=== PATIENT | male | born 1940 | race Caucasian/White ===

== ENCOUNTER 2018-04-06 08:30 | Outpatient (RCR) | payer MEDICARE, OTHER, SELFPAY | END 2018-04-06 13:51 | LOC: CAR 08:30 | PROVIDERS: Family Provider Family Medicine; PCP Family Medicine; Visit Provider Internal Medicine Cardiovascular Disease | DX: I20.9 Angina pectoris, unspecified (principal) | CPT/HCPCS: 93798 ==

== ENCOUNTER → 2020-07-04 10:52 | Outpatient (CLI) | payer MEDICARE, OTHER, SELFPAY ==
--- NOTE | 2020-07-04 | DI.RAD.S_ITS ---
PROCEDURE: FL BARIUM SWALLOW INDICATIONS: GERD. COMPARISON: None. FINDINGS: Function: There was a small amount of esophageal tertiary contractions over the course of this study. No elicited gastroesophageal reflux. Morphology: Air-contrast images demonstrate normal mucosal morphology. Single contrast views show no esophageal strictures, extrinsic mass effects, or diverticula. A minimal hiatal hernia was observed, a single episode of slight gastroesophageal reflux also was observed Limited images of the stomach demonstrate normal appearance. IMPRESSION: Mild episodic tertiary contractions within the mid and distal esophagus, very small hiatal hernia with minimal associated gastroesophageal reflux. No evidence of stricture, erosion or mass. Dictated by: Chris Henning M.D. on 07/04/2020 at 14:11 Approved by: Chris Henning M.D. on 07/04/2020 at 14:12
== END ==
PROVIDERS: Family Provider Family Medicine; PCP Family Medicine; Referring Provider Family Medicine; Visit Provider Nurse Practitioner Family
DX: K21.9 Gastro-esophageal reflux disease without esophagitis (principal)
CPT/HCPCS: 74220

== ENCOUNTER 2020-09-03 08:50 | Emergency (ER) | payer MEDICARE, OTHER, SELFPAY ==
--- NOTE | 2020-09-03 08:54 | ED_ITS ---
HPI - Extremity Injury (Upper) General Chief Complaint: Extremity Injury, Upper Stated Complaint: INJURED RIGHT SHOULDER Time Seen by Provider: 09/03/20 08:53 History of Present Illness HPI narrative: 80-year-old gentleman with history of coronary artery disease post four-way CABG on aspirin and carvedilol presents after injuring his right shoulder yesterday. He had been pulling some branches in using approved your felt snap/pop in the right shoulder with immediate pain that is gotten worse over the evening. He is having pain abducting his arm but can extend without difficulty. He notes that he is right-handed in this is going to be significantly limiting for him. He is able to use his hand and wrist without pain. He is able to be fully extend his elbow without pain. He states that he did have a similar injury on the left side and did not have it attended to and has significantly limited range of motion on the left side as a consequence. Related Data Home Medications Medication Instructions Recorded Confirmed carvedilol 12.5 mg tablet 12.5 mg PO BID 07/02/20 07/11/20 Previous Rx's Medication Instructions Recorded aspirin-dipyridamole [Aggrenox] 1 cap PO BID #180 cap 08/21/16 atorvastatin 80 mg PO HS #90 tab 02/17/17 lansoprazole 30 mg PO QDAY #90 cap 02/17/17 losartan 100 mg PO QDAY #90 tab 02/17/17 nitroglycerin [Nitrostat] 0.4 mg SUBLINGUAL SEE INSTRUCTIONS 02/17/17 #25 tab Allergies Allergy/AdvReac Type Severity Reaction Status Date / Time No Known Drug Allergies Allergy Verified 09/03/20 09:06 Review of Systems Review of Systems Narrative: Pertinent positive and negative findings as per HPI Remainder of review of systems is otherwise unremarkable for Constitutional: Fevers, chills, weakness ENT: No sore throat, neck pain, ear pain CV: Chest pain, palpitations, dyspnea on exertion Respiratory: Cough, wheeze, dyspnea GI: Nausea, vomiting, diarrhea, change in bowel habits, black or bloody stools : Dysuria, hematuria, flank pain Patient History Medical History Bladder cancer (Acute) BPH w urinary obs/LUTS (Acute) Coronary heart disease (Acute) GERD (gastroesophageal reflux disease) (Acute) High blood pressure (Acute) History of primary bladder cancer (Acute) Surgical History H/O cystoscopy (Acute) H/O prostate biopsy (Acute) History of coronary artery stent placement (Acute) History of heart bypass surgery (Acute) History of hip replacement (Acute) History of liver biopsy (Acute) Hx of cholecystectomy (Acute) Hx of vasectomy (Acute) Social History Smoking Status: Never smoker Smoking Status: Never smoker Exam Narrative Exam Narrative: General: Alert appropriate in mild distress Respiratory: Able to speak in full sentences, no obvious respiratory distress Skin: No obvious rashes, warm and dry Neurologic: Grossly intact no obvious asymmetries or abnormalities Extremity: Tender over the deltoid area right arm. There is a minor bruise over the distal deltoid insertion that looks to be 3 to 4-day-old rather than new. He has pain with abduction with normal range of motion at the elbow and wrist. Neurovascularly intact. There is no tenderness over the clavicle the AC joint. There is no warmth or redness over the shoulder itself. There are no skin changes over the shoulder. Psych, appropriate insight and affect, cooperative Initial Vital Signs Initial Vital Signs: Vital Signs Temperature 97.3 F L 09/03/20 08:59 Pulse Rate 67 09/03/20 08:59 Respiratory Rate 18 09/03/20 08:59 Blood Pressure 227/94 H 09/03/20 08:59 Pulse Oximetry 100 09/03/20 08:59 Course Orders Ordered: ED Orders 09/03/20 08:56 XR shoulder RT min 2V Stat Discontinued Medications Acetaminophen (Tylenol) 975 mg PO NOW ONE Stop: 09/03/20 09:05 Last Admin: 09/03/20 09:22 Dose: 975 mg Documented by: BTONER Vital Signs Vital signs: Vital Signs - 8 hr 09/03/20 08:59 09/03/20 10:42 Temperature 97.3 F L Pulse Rate 67 50 L Respiratory Rate 18 18 Blood Pressure 227/94 H 187/94 H Pulse Oximetry 100 100 MDM - Extremity Injury (Upper) Imaging Data Right shoulder x-ray: Attestation: I personally reviewed and interpreted this imaging study as follows: My Impression: No acute bony injury or AC separation. MDM Narrative Medical decision making narrative: 80-year-old gentleman who presents with probable rotator cuff tear based on presentation and exam. X-ray is unremarkable. Pain is controlled somewhat with Tylenol. Given a sling. He will need an MRI for more definitive diagnosis. Contacted his primary care physician Dr. Sherman on [facility]. They will look at need for pre-approval and see if we can help facilitate MRI study sooner rather than later as [place] accessing medical care during these times is quite challenging. Discharge Plan Departure Patient Disposition: Home Clinical Impression: Rotator cuff injury Qualifiers: Encounter type: initial encounter Laterality: right Qualified Code(s): S46.001A - Unspecified injury of muscle(s) and tendon(s) of the rotator cuff of right shoulder, initial encounter Injury of shoulder Qualifiers: Encounter type: initial encounter Laterality: right Qualified Code(s): S49.91XA - Unspecified injury of right shoulder and upper arm, initial encounter Discharge Date/Time: 09/03/20 10:42 Instructions: DI for Rotator Cuff Injury Activity Restrictions/Additional Instructions: Thank you for coming in today I suspect that you have injured your rotator cuff. Your x-rays today are unremarkable but you may well need an MRI for more definitive imaging. Please continue to use Tylenol and/or sling for pain control I have contacted Dr. Sherman's office and his nurses currently working on approval is a and referrals for both a right shoulder MRI and orthopedic follow- up. She has your phone number and will call you when she has more information available later this morning. I hope you heal quickly. Prescriptions: No Action aspirin-dipyridamole [Aggrenox] 25 MG/200 MG capsule, ER multiphase 12 hr 1 cap PO BID Qty: 180 RF: 3 atorvastatin 80 MG tablet 80 mg PO HS Qty: 90 RF: 2 losartan 100 MG tablet 100 mg PO QDAY Qty: 90 RF: 2 nitroglycerin [Nitrostat] 0.4 MG tablet, sublingual 0.4 mg Sublingual SEE INSTRUCTIONS Qty: 25 RF: 2 lansoprazole 30 MG capsule,delayed release(DR/EC) 30 mg PO QDAY Qty: 90 RF: 2 carvedilol 12.5 mg tablet 12.5 mg PO BID RF: 0 Referrals: Antwon Sherman MD [Primary Care Provider] -
--- NOTE | 2020-09-03 08:56 | DI.RAD.S_ITS ---
PROCEDURE: XR SHOULDER RT MIN 2V INDICATIONS: injury TECHNIQUE: 3 views of the shoulder were acquired. COMPARISON: None. FINDINGS: Bones: No acute fractures or dislocations. Moderate degenerative changes of the right acromioclavicular joint. Coracoclavicular and acromioclavicular intervals are maintained. No suspicious bony lesions. Visualized ribs appear intact. Soft tissues: No suspicious soft tissue calcifications. Multiple median sternotomy wires appear intact. IMPRESSION: Right shoulder without acute osseous abnormalities. Moderate right acromioclavicular osteoarthrosis. Dictated by: Esteban Martinez M.D. on 09/03/2020 at 9:54 Approved by: Esteban Martinez M.D. on 09/03/2020 at 9:56
[2020-09-03 08:59] VITALS: BP 227/94; PULSE 67; RESP 18; TEMP 36.3; O2SAT 100; BMI 29.0
[2020-09-03] MEDS: ACETAMINOPHEN 325 MG TABLET 975 MG PO (09:22)
[2020-09-03 10:42] VITALS: BP 187/94; PULSE 50; RESP 18; O2SAT 100
== END 2020-09-03 10:42 | disposition home or self-care (01) ==
PROVIDERS: Emergency Provider Emergency Medicine; Family Provider Family Medicine; PCP Family Medicine
DX: S46.001A Unspecified injury of muscle(s) and tendon(s) of the rotator cuff of right shoulder, initial encounter (principal); S49.91XA Unspecified injury of right shoulder and upper arm, initial encounter
CPT/HCPCS: 73030; 99283

== ENCOUNTER → 2020-09-04 06:40 | Outpatient (CLI) | payer MEDICARE, OTHER, SELFPAY ==
--- NOTE | 2020-09-04 | DI.MRI.S_ITS ---
PROCEDURE: MR SHOULDER RT WO CON INDICATIONS: Unspecified injury of right shoulder and upper arm TECHNIQUE: Noncontrast oblique coronal T2 fast spin echo with fat saturation, oblique sagittal T1 spin echo and T2 fast spin echo with fat saturation, axial T1 spin echo and T2 fast spin echo with fat saturation through the shoulder. COMPARISON: [facility], MR, SHOULDER WITHOUT CONTRAST, 01/12/2017, 16:43. FINDINGS: Image quality: Motion degraded examination. Rotator cuff: Massive full thickness tear of the supraspinatus and infraspinatus tendons is seen measuring approximately 5.1 cm in the AP dimension as seen on sagittal image 10/10. There is also teres minor thickening and tendinopathy. Partial thickness articular sided tear of the subscapularis tendon is seen although not well evaluated due to motion artifact. Atrophy of the supraspinatus and infraspinatus, subscapularis muscles is present. There is also diffuse fatty infiltration of the rotator cuff muscles. Bones and bursae: No bone marrow contusions or fractures. Moderate acromioclavicular joint degeneration. Glenohumeral joint degeneration also present. Acromion demonstrates conventional anatomy, without an os acromiale. Joint effusion present Capsule and soft tissues: Labrum: Labrum is not well visualized however there is circumferential maceration and ill-defined tearing which could be chronic/degenerative. Long head of the biceps tendon not well seen due to motion artifact although there is thickening and intrasubstance T2 hyperintensity suggesting tendinopathy/partial or interstitial tear. The rotator interval appears normal, without fibrosis. Coracohumeral ligament intact. IMPRESSION: Massive full-thickness tear of the supraspinatus and infraspinatus tendons as detailed above. Teres minor tendinopathy Subscapularis tendinopathy with partial thickness articular sided tear. Degenerative joint disease Joint effusion Circumferential labral tear which is likely chronic/degenerative. This finding not well seen due to severe motion artifact. Dictated by: Young Chi M.D. on 09/04/2020 at 9:01 Approved by: Young Chi M.D. on 09/04/2020 at 9:06
== END ==
PROVIDERS: Family Provider Family Medicine; PCP Family Medicine; Referring Provider Family Medicine; Visit Provider Family Medicine
DX: S46.011A Strain of muscle(s) and tendon(s) of the rotator cuff of right shoulder, initial encounter (principal); S49.91XA Unspecified injury of right shoulder and upper arm, initial encounter; M19.011 Primary osteoarthritis, right shoulder; M25.411 Effusion, right shoulder; X58.XXXA Exposure to other specified factors, initial encounter
CPT/HCPCS: 73221

== ENCOUNTER → 2021-01-03 11:59 | Outpatient (CLI) | payer MEDICARE, OTHER, SELFPAY ==
--- NOTE | 2021-01-03 12:02 | DI.MRI.S_ITS ---
PROCEDURE: MR LUMBAR SPINE WO CON INDICATIONS: Low back pain TECHNIQUE: Noncontrast sagittal T1 spin echo and T2 fast echo, sagittal STIR, axial T1 and T2 fast spin echo through the lumbar spine. In cases with scoliosis, additional coronal T2 fast spin echo may be performed. COMPARISON: None. FINDINGS: Image quality: Excellent. Alignment and Curvature: Partially visualized lateral curvature of the spine. Bone Marrow: No acute fracture identified. Multilevel degenerative endplate sclerosis and spurring. Diffuse facet arthropathy. Spinal Cord: Conus medullaris terminates at the L1-L2 level. Visualized cord demonstrates normal signal and size. Paraspinous Soft Tissues: No paravertebral masses. There is nonspecific, dependent posterior subcutaneous soft tissue edema from level of L3-L5. T12-L1: Mild canal narrowing. Mild right foraminal narrowing. Moderate left foraminal stenosis. L1-L2: [id number] canal narrowing. Partial effacement of both lateral recesses with bilaterally symmetric appearance. Severe bilateral foraminal stenoses, with nerve root compression. L2-L3: Moderate canal narrowing. Partial effacement of both lateral recesses with bilaterally symmetric appearance. Severe left foraminal stenosis with nerve root compression. Moderate right foraminal narrowing L3-L4: Mild canal narrowing. Partial effacement of both lateral recesses with bilaterally symmetric appearance. Severe left foraminal stenosis with nerve root compression. Moderate right foraminal narrowing L4-L5: Mild canal narrowing. Partial effacement of both lateral recesses with bilaterally symmetric appearance. Severe left foraminal stenosis with nerve root compression. Moderate right foraminal narrowing. L5-S1: Mild canal narrowing. Partial effacement of both lateral recesses with bilaterally symmetric appearance. Moderate to severe bilateral foraminal stenosis with borderline nerve root compression on both sides. IMPRESSION: Diffuse lumbar spondylosis, facet arthropathy and partially visualized lateral curvature of the spine. Moderate L2-L3 canal narrowing. Numerous bilateral foraminal stenosis as detailed above by spinal level. Dictated by: Young Chi M.D. on 01/03/2021 at 15:24 Approved by: Young Chi M.D. on 01/03/2021 at 15:31
== END ==
PROVIDERS: Family Provider Family Medicine; PCP Family Medicine; Referring Provider Physical Medicine & Rehabilitation Pain Medicine; Visit Provider Physical Medicine & Rehabilitation Pain Medicine
DX: M54.5 Low back pain (principal); M47.816 Spondylosis without myelopathy or radiculopathy, lumbar region; M48.061 Spinal stenosis, lumbar region without neurogenic claudication; M48.07 Spinal stenosis, lumbosacral region
CPT/HCPCS: 72148

== ENCOUNTER → 2024-08-15 11:31 | Outpatient (CLI) | payer MEDICARE, OTHER, SELFPAY ==
[2024-08-15 12:56] LABS: Estimated Glomerular Filt Rate 56 mL/min (>60)
== END ==
PROVIDERS: Family Provider Family Medicine; PCP Family Medicine; Referring Provider Urology; Visit Provider Urology
DX: Z85.51 Personal history of malignant neoplasm of bladder (principal)
CPT/HCPCS: 36415; 82565

== ENCOUNTER → 2024-08-29 13:35 | Outpatient (CLI) | payer MEDICARE, OTHER, SELFPAY ==
--- NOTE | 2024-08-29 13:36 | DI.CT.S_ITS ---
PROCEDURE: CT IVP A/P W/WO INDICATIONS: 84 y/o M w/ h/o bladder cancer, please eval upper tracts TECHNIQUE: Optional 5 mm thick noncontrast images acquired from the diaphragm to the symphysis pubis. After the administration of intravenous contrast, 5 mm thick images acquired from the diaphragm to the symphysis pubis after a 10-minute delay. 2 mm thick coronal and sagittal reformats were then performed of the kidneys and ureters. For radiation dose reduction, the following was used: automated exposure control, adjustment of mA and/or kV according to patient size. COMPARISON: [facility] Outside Film, CT, CT ABDOMEN PELVIS WITH CONTRAST, 12/02/2020, 12:15. FINDINGS: Image quality: Diagnostic Lower chest: Scattered scarring/atelectasis. Coronary disease, aortic, and annular calcifications. Small hiatal hernia. Normal heart size. Liver: Unremarkable. Small right lobe granuloma Small nodularity posterior to the liver again seen Gallbladder and biliary system: Cholecystectomy, nondilated Pancreas: Focal atrophy is seen at the pancreatic head and neck, possibly with ductal dilation measuring 9 mm. Spleen: Nonenlarged Adrenals: Mild thickening of the left adrenal is similar to prior Kidneys: No solid mass. No hydronephrosis. Small cysts are present. No significant obstructing calcified stone. Subcentimeter lesions are too small to characterize, usually also cysts. No suspicious ureter filling defects Vessels and lymph nodes: The main portal vein is patent. No abdominal aortic aneurysm. Atherosclerotic calcifications are present. No pathologic lymph nodes by size criteria. Bowel and peritoneum: No evidence of small bowel obstruction. No pathologic ascites. There are colonic diverticula. Mild distal colonic wall thickening may represent chronic diverticular disease, consider correlation with age-appropriate colonoscopy results. Body wall: Suspect partially seen left greater right hydroceles. Body wall otherwise unremarkable Pelvis: Bladder could be better assessed with cystoscopy. No discrete mass on CT. Prostate is not well evaluated either on CT Bones: Right hip arthroplasty. There are degenerative changes. Lumbosacral fusion hardware also present. IMPRESSION: No evidence of active metastases in the abdomen/pelvis. Focal atrophy and possible ductal dilation at the pancreatic head/neck. Consider follow-up pancreas MRI to further evaluate. Other incidental and stable findings are described above. Dictated by: Alverto Colunga M.D. on 08/29/2024 at 14:57 Approved by: Alverto Colunga M.D. on 08/29/2024 at 15:05
== END ==
PROVIDERS: Family Provider Family Medicine; PCP Family Medicine; Referring Provider Urology; Visit Provider Urology
DX: Z85.51 Personal history of malignant neoplasm of bladder (principal); Z08 Encounter for follow-up examination after completed treatment for malignant neoplasm; K86.89 Other specified diseases of pancreas; N28.1 Cyst of kidney, acquired; K44.9 Diaphragmatic hernia without obstruction or gangrene; K57.90 Diverticulosis of intestine, part unspecified, without perforation or abscess without bleeding; Z96.641 Presence of right artificial hip joint; Z98.1 Arthrodesis status; Z90.49 Acquired absence of other specified parts of digestive tract
CPT/HCPCS: 74178; Q9967

== ENCOUNTER → 2024-09-11 14:39 | Outpatient (CLI) | payer MEDICARE, OTHER, SELFPAY ==
--- NOTE | 2024-09-11 | DI.MRI.S_ITS ---
PROCEDURE: MR AB PANCREATIC/MRCP PROTOCOL INDICATIONS: Abnormal findings on diagnostic imaging TECHNIQUE: Coronal HASTE through the abdomen, axial 2-D FLASH in- and [id number], and breath-hold T2 FSE with fat saturation through the biliary system and pancreas. Oblique coronal and axial thin-slice HASTE, radial thick-slab HASTE centered on the extrahepatic bile ducts. Pre and postcontrast axial and coronal vibe images. 20 cc ProHance IV contrast. Restricted diffusion sequences. COMPARISON: [facility] Outside Film, CT, CT ABDOMEN PELVIS WITH CONTRAST, 12/02/2020, 12:15. [facility], CT, CT IVP A/P W/WO, 08/29/2024, 13:42. FINDINGS: Image quality: Diagnostic. Gallbladder: Absent. Biliary ducts: No biliary dilation. No filling defect. Pancreas: Atrophic. No ductal dilation. Enhances uniformly. No mass or cystic lesion. No restricted diffusion. OTHER: Lung bases: Post median sternotomy. No pleural effusion. Liver: No solid mass. Spleen: Size is within normal limits. Adrenal Glands: No adrenal nodules. Kidneys and Ureters: No hydronephrosis. No solid mass. No complex renal cystic lesion which requires follow up. Stomach and Bowel: No dilated loops of bowel. Diverticulosis. Peritoneum: No ascites. Small nodule at the right flank just inferior to the right liver measuring 1.6 cm, (5/), previously 1.7 cm in 2020. Ventral Wall: No hernia. Abdominal Nodes: No retroperitoneal or mesenteric adenopathy by size criteria. Vessels: Aorta and inferior vena cava are normal in size. Bones: No aggressive osseous abnormality. Lower lumbar spine fixation hardware. IMPRESSION: 1. No pancreatic mass or cystic lesion is identified. No pancreatic ductal dilatation. 2. Post cholecystectomy. No biliary ductal dilatation. 3. Small peritoneal nodule inferior to the right liver is unchanged since 2020. No adenopathy. Dictated by: Eduardo Klein M.D. on 09/12/2024 at 10:56 Approved by: Eduardo Klein M.D. on 09/12/2024 at 11:08
== END ==
PROVIDERS: Family Provider Family Medicine; PCP Family Medicine; Referring Provider Family Medicine; Visit Provider Family Medicine
DX: R93.5 Abnormal findings on diagnostic imaging of other abdominal regions, including retroperitoneum (principal); K57.90 Diverticulosis of intestine, part unspecified, without perforation or abscess without bleeding; K76.9 Liver disease, unspecified; Z90.49 Acquired absence of other specified parts of digestive tract
CPT/HCPCS: 74183; A9579

== ENCOUNTER → 2025-02-01 13:28 | Outpatient (CLI) | payer MEDICARE, OTHER, SELFPAY ==
[2025-02-01 19:18] LABS: Add Manual Diff / Slide Review NO; Basophils Absolute Auto 0 /uL (0-100); Basophils Percent Auto 0.4 % (0-2); Eosinophils Absolute Auto 300 /uL (0-450); Eosinophils Percent Auto 6.1 % (2-4); Hematocrit 39.6 % (41-53); Hemoglobin 13.4 g/dL (13.5-17.5); Lymphocytes Absolute Auto 1300 /uL (1100-4500); Lymphocytes Percent Auto 22.5 % (25-40); Mean Corpuscular HGB Conc 33.9 % (30-36); Mean Corpuscular Hemoglobin 30.2 PG (26-34); Mean Corpuscular Volume 88.9 fL (80-100); Monocytes Absolute Auto 900 /uL (0-900); Monocytes Percent Auto 15.8 % (3-14); Neutrophils Absolute Auto 3100 /uL (1500-7000); Neutrophils Percent Auto 55.2 % (50-75); Platelet Count 188 X10^3/uL (150-400); Red Blood Cell Count 4.45 X10^6/uL (4.5-5.9); White Blood Cell Count 5.6 X10^3/uL (4.5-11.0)
[2025-02-01 19:34] LABS: Alanine Aminotransferase 27 IU/L (<50); Albumin 4.4 g/dL (3.5-5.0); Albumin Globulin Ratio 1.4 (1.0-2.8); Alkaline Phosphatase 112 U/L (38-126); Aspartate Aminotransferase 62 IU/L (17-59); Bilirubin Total 1.1 mg/dL (0.2-1.3); Bilirubin Unconjugated 0.6 mg/dL (0.0-1.1); Globulin 3.2 g/dL (1.7-4.1); HEMOLYSIS 39 (0-50); Total Protein 7.6 g/dL (6.3-8.2)
== END ==
PROVIDERS: PCP Family Medicine; Visit Provider Dermatology
DX: B35.3 Tinea pedis (principal); B35.1 Tinea unguium
CPT/HCPCS: 80076; 85025